=== PATIENT | male | born 1940 | race Caucasian/White ===

== ENCOUNTER 2016-05-26 07:00 | Day surgery (SDC) | payer OTHER ==
[~2016-05-26 07:00] MED LIST: ALLEGRA180 PO; ALLERGY EYE DROPS OPH; AMIT25 PO; ASAB PO; CELEXA20 PO; CIALIS2.5 MG PO; ENDOCET1 TA3 PO; FLOMAX4 PO; FLORINEF0.1 MG PO; GLUCCHONDR PO; HCTZ25B PO; HYDROCHLOROT25 MG PO; LOP25 PO; LOTE20 PO; LOTE5 PO; METPAKSF PO; Metamucil PO; NEUR300 PO; NORCO1 TA2 PO; NORV5 PO; PERCOCET 10/3251 TAB PO; PRILOSEC40 MG PO; ROXICET1 TAB PO; VITAMIN B-121000 MC1 PO; VITAMIN D31000 UNIT PO; VOLT75 PO; VYTORIN 10/20 T1 TAB PO; ZOCOR40 PO
[2016-09-22] MEDS ORDERED: FIBER SUPPLEMENT PO (14:39)
[2016-09-22] MEDS ORDERED: FLORINEF0.1 MG PO (14:39)
[2016-09-22] MEDS ORDERED: HALF81 PO (14:39)
[2016-09-22] MEDS ORDERED: ZOCOR40 PO (14:40)
[2016-09-22] MEDS ORDERED: CELEXA10 PO (14:40)
[2016-09-22] MEDS ORDERED: PERCOCET 10/3251 TAB PO (14:40)
[2016-09-22] MEDS ORDERED: PRILOSEC40 MG PO (14:40)
[2016-09-22] MEDS ORDERED: ALLEGRA180 PO (14:40)
[2016-09-22] MEDS ORDERED: REM15 PO (14:41)
[2016-09-22] MEDS ORDERED: B12250T PO (14:41)
[2016-09-22] MEDS ORDERED: PROAMAT5 PO (14:42)
[2016-10-29] MEDS ORDERED: ELIQUIS 5 MG TAB5 MG PO (14:47)
[2016-10-29] MEDS ORDERED: LOVENOX80 SC (14:48)
== END 2016-05-26 08:52 | disposition home or self-care (01) ==
LOC: SDC 07:00
PROVIDERS: Orthopaedic Surgery
PROC: 3E0R33Z Introduction of Anti-inflammatory into Spinal Canal, Percutaneous Approach (ICD-10-PCS; principal; 2016-05-26 07:00)
DX: M54.14 Radiculopathy, thoracic region (principal); I10 Essential (primary) hypertension; E78.00 Pure hypercholesterolemia, unspecified; I25.2 Old myocardial infarction; I25.10 Atherosclerotic heart disease of native coronary artery without angina pectoris; M19.90 Unspecified osteoarthritis, unspecified site; K21.9 Gastro-esophageal reflux disease without esophagitis; F32.9 Major depressive disorder, single episode, unspecified; Z98.890 Other specified postprocedural states; Z95.1 Presence of aortocoronary bypass graft; Z87.891 Personal history of nicotine dependence
CPT/HCPCS: J1040; J2250; J3010; Q9967

== ENCOUNTER 2016-07-09 14:03 | Emergency (ER) | payer OTHER ==
[2016-07-09 14:17] LABS: BASOPHILS 0.4 %; BASOPHILS ABSOLUTE 0.03 10/3/uL (0.0-0.16); EOSINOPHILS ABSOLUTE 0.27 10/3/uL (0.0-0.53); ER CBC TAT 0 Hrs 03 Mins; HEMATOCRIT 33.4 % (40.0-51.0); HEMOGLOBIN 11.5 g/dL (13.6-17.8); IMMATURE GRANULOCYTES 0.6 %; IMMATURE GRANULOCYTES ABSOLUTE 0.04 10/3/uL (0.0-0.11); LYMPHOCYTES 18.6 %; LYMPHOCYTES ABSOLUTE 1.27 10/3/uL (0.67-4.30); MEAN CORPUS HGB CONC 34.4 g/dL (32.0-36.0); MEAN CORPUSCULAR HEMOGLOB 31.2 pg (26.0-34.0); MEAN CORPUSCULAR VOLUME 90.5 fL (80-100); MEAN PLATELET VOLUME 8.2 fL (9.2-13.0); MONOCYTES 8.1 %; MONOCYTES ABSOLUTE 0.55 10/3/uL (0.21-1.20); NEUTROPHILS 68.3 %; NEUTROPHILS ABSOLUTE 4.67 10/3/uL (2.02-8.40); PLATELET COUNT 206 10/3/uL (150-400); RBC DISTRIBUTION WIDTH 12.7 % (12.0-16.0); RED CELL COUNT 3.69 10/6/uL (4.7-6.1); WHITE BLOOD CELLS 6.8 10/3/uL (4.5-10.5)
[2016-07-09 14:18] LABS: MANUAL DIFF NO %
[2016-07-09 14:32] LABS: BUN (BLOOD UREA NITROGEN) 21 MG/DL (6-23); CALCIUM, SERUM 8.9 MG/DL (8.5-10.4); CHEST PAIN PROFILE TAT 0 Hrs 18 Mins; CHLORIDE, SERUM 101 MMOL/L (96-112); CO2 (CARBON DIOXIDE) 30 MMOL/L (24-34); CREATININE 1.52 MG/DL (0.70-1.30); GFR AFRICAN AMERICAN 52 ML/MIN (>=60); GFR NON AFRICAN AMERICAN 44 ML/MIN (>=60); GLUCOSE, SERUM 96 MG/DL (60-99); POTASSIUM, SERUM 4.1 MMOL/L (3.5-5.3); SODIUM, SERUM 136 MMOL/L (135-148); TROPONIN I <0.02 NG/ML (<0.05)
[2016-07-09 14:36] LABS: INTERNATIONAL NORMAL RATI 1.1 UNITS (-); PARTIAL THROMBO TIME 29.8 SEC (22.5-37.2); PROTIME (NOT ORD) 14.5 SEC (12.0-14.5)
[2016-09-22] MEDS ORDERED: FIBER SUPPLEMENT PO (14:39)
[2016-09-22] MEDS ORDERED: FLORINEF0.1 MG PO (14:39)
[2016-09-22] MEDS ORDERED: HALF81 PO (14:39)
[2016-09-22] MEDS ORDERED: ZOCOR40 PO (14:40)
[2016-09-22] MEDS ORDERED: ALLEGRA180 PO (14:40)
[2016-09-22] MEDS ORDERED: PRILOSEC40 MG PO (14:40)
[2016-09-22] MEDS ORDERED: PERCOCET 10/3251 TAB PO (14:40)
[2016-09-22] MEDS ORDERED: CELEXA10 PO (14:40)
[2016-09-22] MEDS ORDERED: REM15 PO (14:41)
[2016-09-22] MEDS ORDERED: B12250T PO (14:41)
[2016-09-22] MEDS ORDERED: PROAMAT5 PO (14:42)
[2016-10-29] MEDS ORDERED: ELIQUIS 5 MG TAB5 MG PO (14:47)
[2016-10-29] MEDS ORDERED: LOVENOX80 SC (14:48)
== END 2016-07-09 18:48 | disposition home or self-care (01) ==
LOC: ER 14:03
PROVIDERS: Emergency Medicine
PROC: 0HQFXZZ Repair Right Hand Skin, External Approach (ICD-10-PCS; principal; 2016-07-09)
DX: S63.280A Dislocation of proximal interphalangeal joint of right index finger, initial encounter (principal); S61.210A Laceration without foreign body of right index finger without damage to nail, initial encounter; Z79.82 Long term (current) use of aspirin; Z79.899 Other long term (current) drug therapy; W19.XXXA Unspecified fall, initial encounter
CPT/HCPCS: 70450; 71020; 73130-RT; 80048; 83735; 84484; 85025; 85610; 85730; 93005; 99285